=== PATIENT | female | born 1955 | race Caucasian/White ===

== ENCOUNTER 2022-12-06 05:54 | Day surgery (SDC) | payer MEDICARE ==
[2022-12-05 11:40] VITALS: BMI 23.3
[2022-12-06] MEDS ORDERED: fentaNYL PF 100 MCG/2 ML SYRINGE ONE (06:34)
[2022-12-06] MEDS ORDERED: fentaNYL 50 mcg/mL 1 mL Vial ONE (07:16)
[2022-12-06] MEDS ORDERED: Bupivacaine PF 0.5% 30 ML VIAL ONE (07:16)
[2022-12-06] MEDS ORDERED: CEFAZOLIN 2 GM VIAL ONE (07:18)
[2022-12-06] MEDS ORDERED: Sodium Chloride 0.9% 100 ML ONE (07:18)
[2022-12-06] MEDS ORDERED: Ondansetron PF 4 MG/2 ML Vial ONE (07:25)
[2022-12-06] MEDS ORDERED: PROPOFOL 200 MG/20 ML VIAL ONE (07:25)
[2022-12-06] MEDS ORDERED: Bupivacaine HCl 0.5%/Epinephrine 1:200,000/PF 30 ml Vial ONE (07:25)
[2022-12-06] MEDS ORDERED: ePHEDrine Sulfate 50 MG/10 ML VIAL ONE ×2 (07:25)
[2022-12-06] MEDS ORDERED: Dexamethasone 20 MG/5 ML VIAL ONE (07:25)
== END 2022-12-06 10:28 | disposition home or self-care (01) ==
LOC: SDC 05:54
PROVIDERS: ATTEND Orthopaedic Surgery
PROC: 0PSJ04Z Reposition Left Radius with Internal Fixation Device, Open Approach (ICD-10-PCS; principal; 2022-12-06)
DX: S52.502A Unspecified fracture of the lower end of left radius, initial encounter for closed fracture (principal); X58.XXXA Exposure to other specified factors, initial encounter
CPT/HCPCS: 25608; 73100; C1713 ×3; J3010; J1100; J2405; J2704; J3490; S0020